=== PATIENT | male | born 1995 | race Caucasian/White ===

== ENCOUNTER 2025-02-18 15:13 | Outpatient (CLI) | payer BC | END 2025-02-18 15:14 | disposition home or self-care (01) | LOC: CSHULT 15:13 | PROVIDERS: ATTEND Internal Medicine | DX: I10 Essential (primary) hypertension (principal) | CPT/HCPCS: 93306 ==

== ENCOUNTER 2025-04-25 12:53 | Outpatient (CLI) | payer BC | END 2025-04-25 12:54 | disposition home or self-care (01) | LOC: CSHULT 12:53 | PROVIDERS: ATTEND Internal Medicine | DX: I10 Essential (primary) hypertension (principal) | CPT/HCPCS: 76770; 93975 ==